=== PATIENT | male | born 1955 | race Caucasian/White ===

== ENCOUNTER 2019-07-05 15:26 | Inpatient (IN) | payer OTHER ==
[~2019-07-05] VITALS: Ht 177.8 cm; Wt 93.7 kg
[2019-07-05] MEDS ORDERED: SODIUM CHLORIDE 0.9% 1,000 ML IV ONE (16:09)
--- NOTE | 2019-07-05 16:10 | NUR ---
BIB EMS FROM HOME FOR SEIZURE TODAY, NO PAST HISTORY. WITNESSED BY , FULL BODY ORIGINALLY A&OX1. IV IN PLACE ON ARRIVAL, 500ML NS GIVEN TEXTILE SCREEN PRINTER. CONNECTED TO ALL MONITORING, HTN AND TACHY. SHOWING AFIB, NO HX OF AFIB. A&OX4 CURRENTLY. PT IS A DAILY DRINKER 5-6 DRINKS/DAY BEER AND VODKA. AT BEDSIDE. CALL MAI LOMBARDO. AWAITING ORDERS AT THIS TIME
[2019-07-05] MEDS ORDERED: LORazepam 2 MG/ML, 1ML ONE (16:18)
[2019-07-05 16:42] LABS: BASOPHILS # (AUTO) 0.04 x10^3/uL (0-0.1); BASOPHILS % (AUTO) 1 % (0-1); EOSINOPHILS % (AUTO) 0 % (1-7); LYMPHOCYTES % (AUTO) 11 % (22-44); MD NO; MEAN CORPUSCULAR HEMOGLOBIN 34.7 pg (27.5-34.5); MEAN CORPUSCULAR HGB CONC 34.2 g/dL (33.2-36.2); MEAN CORPUSCULAR VOLUME 101.4 fL (81-97); MEAN PLATELET VOLUME 7.4 fL (7.4-10.4); MONOCYTES # (AUTO) 0.37 x10^3/uL (0.2-0.8); MONOCYTES % (AUTO) 7 % (2-9); NEUTROPHILS # (AUTO) 4.32 x10^3/uL (1.8-6.8); NEUTROPHILS % (AUTO) 81 % (42-75); PLATELET COUNT 157 x10^3/uL (130-400); RED BLOOD COUNT 4.34 x10^6/uL (4.38-5.82); RED CELL DISTRIBUTION WIDTH 13.4 % (9.4-14.8)
[2019-07-05 16:43] LABS: ALANINE AMINOTRANSFERASE 50 U/L (12-78); ANION GAP 14 mmol/L (5-15); CALCIUM 8.4 mg/dL (8.5-10.1); CHLORIDE 94 mmol/L (98-107); CREATININE 0.85 mg/dL (0.7-1.3); T4 (THYROXINE) 6.6 mcg/dL (4.5-12.1)
[2019-07-05 16:48] LABS: ALKALINE PHOSPHATASE 41 U/L (45-117); BILIRUBIN,TOTAL 0.9 mg/dL (0.2-1.0); TOTAL PROTEIN 7.3 g/dL (6.4-8.2); TROPONIN I 0.049 ng/mL (0.000-0.045)
[2019-07-05] MEDS ORDERED: THIAMINE 100 MG in SODIUM CHLORIDE 0.9% 50 ML IVPB ONE (17:00)
[2019-07-05] MEDS ORDERED: LORazepam 2 MG/ML, 1ML IVPush ONE (17:00)
[2019-07-05] MEDS ORDERED: SODIUM CHLORIDE 0.9% 1,000ML IVBOLUS ONE (17:30)
[2019-07-05] MEDS ORDERED: SODIUM CHLORIDE FLUSH 10ML SYR IVF ONE (17:30)
--- NOTE | 2019-07-05 17:39 | NUR ---
F/U CALL PLACED TO CT IN REGARDS TO DELAY IN TEST, TECH STS PT IS UP NEXT. WILL CONTINUE TO MONITOR
--- NOTE | 2019-07-05 17:47 | NUR ---
BEING TAKEN TO CT NOW
--- NOTE | 2019-07-05 19:03 | NUR ---
RECEIVED REPORT FROM ZEE PRETTY RN TO ASSUME CARE OF PT. AT APROXIMATELY 1850. PT. RESTNG ON [facility] WITH AT FOR SUPPORT. MONITORS IN PLACE. ALL SAFETY MEASURES OBSERVED. ALL RESULTS BACK AND CHART UP FOR RECHECK BY ERP.
--- NOTE | 2019-07-05 19:09 | NUR ---
VS UPDATED. PT. IN A-FIB ON MONITRS RATE 80'S TO LOW 90'S. PT. DENIES ANY PAIN OR DISCOMFORT. DENIES NEEDS AT THIS TIME.
--- NOTE | 2019-07-05 19:26 | NUR ---
DR. PEDRAZA WAS IN TO DISCUSS POC WITH PT. AND AT BS.
[2019-07-05] MEDS ORDERED: SODIUM CHLORIDE FLUSH 10ML SYR IVF PRN (20:00)
--- NOTE | 2019-07-05 20:09 | NUR ---
Pt report from Cassi dominguez. This rn to assume care of pt. No immediate needs from pt. Pt is tele hold. Awaiting hospital bed.
[2019-07-05] MEDS ORDERED: LORazepam 2 MG/ML, 1ML IVPush PRN (20:30)
[2019-07-05] MEDS ORDERED: CHLORDIAZEPOXIDE 25 MG CAPSULE PO PRN (20:30)
--- NOTE | 2019-07-05 21:05 | NUR ---
Pt moved to hospital bed. No immediate needs.
--- NOTE | 2019-07-05 21:08 | NUR ---
ZAYDA RN: DECLINE FOR TRANSFER RECEIVED FROM JOSEPH FROM [facility]
[2019-07-05] MEDS ORDERED: THIAMINE 100MG TABLET ONE (21:42)
[2019-07-05] MEDS: THIAMINE 100MG TABLET PO SCH (21:49)
[2019-07-05] MEDS: SODIUM CHLORIDE 0.9% 1,000 ML IV SCH (22:02)
--- NOTE | 2019-07-05 22:13 | NUR ---
Pt maintenance fluids placed on dial-a-flow d/t lack of pumps on floor. Informed charge of situation.
[2019-07-05 22:33] LABS: TROPONIN I 0.202 ng/mL (0.000-0.045)
--- NOTE | 2019-07-05 22:50 | NUR ---
Increased trop reported to [facility] w/o cp and 5 lead changes. JOSE GUADALUPE states "ok".
--- NOTE | 2019-07-05 23:47 | NUR ---
Pt bedside report to Carole dominguez.
[2019-07-06 05:00] LABS: TROPONIN I 0.168 ng/mL (0.000-0.045)
[2019-07-06] MEDS: SODIUM CHLORIDE 0.9% 1,000 ML IV SCH ×2 (07:00→17:00)
--- NOTE | 2019-07-06 07:24 | NUR ---
Report received from Carole
[2019-07-06] MEDS: FOLIC ACID 1 MG TABLET PO SCH (09:00)
[2019-07-06] MEDS: THIAMINE 100MG TABLET PO SCH ×2 (09:00→20:49)
--- NOTE | 2019-07-06 09:04 | NUR ---
REPORT FROM ZEV PETTY.
--- NOTE | 2019-07-06 09:42 | NUR ---
EEG BEING PERFORMED AT BEDSIDE AT THIS TIME. PT ALSOP REMOVED IV, AWARE OF NEED TO PLACE NEW IV. AWAITING COMPLETION OF CURRENT EXAM
[2019-07-06] MEDS ORDERED: THIAMINE 100MG TABLET ONE (10:05)
--- NOTE | 2019-07-06 10:35 | NUR ---
EEG FINISHING UP AT BEDSIDE AT THIS TIME.
--- NOTE | 2019-07-06 14:53 | NUR ---
PT PROVIDED WITH LUNCH TRAY. DENIES ANY NEEDS OR CONCERNS. CALL LIGHT IN REACH.
--- NOTE | 2019-07-06 15:01 | NUR ---
REPORT RECEIVED FROM [facility]PHIRE BROTHERS.
--- NOTE | 2019-07-06 15:33 | NUR ---
PT RESTING ON [place] WATCHING TV. DIET TRAY REMOVED FROM ROOM. DENIES FURTHER NEEDS AT THIS TIME.
--- NOTE | 2019-07-06 16:00 | NUR ---
REPORT GIVEN TO WALLY BROTHERS. PT IS READY FOR TRANSPORT AT THIS TIME.
[2019-07-06 19:52] VITALS: BP 157/78
[2019-07-07] VITALS (8 sets, daily range): BP systolic 147–182; BP diastolic 66–93
[2019-07-07] MEDS: SODIUM CHLORIDE 0.9% 1,000 ML IV SCH ×2 (03:01→06:08)
[2019-07-07 06:05] LABS: ANION GAP 7 mmol/L (5-15); C-REACTIVE PROTEIN, QUANT 0.28 mg/dL (0.02-0.49); CALCIUM 8.3 mg/dL (8.5-10.1); CHLORIDE 103 mmol/L (98-107); CREATININE 0.66 mg/dL (0.7-1.3)
[2019-07-07 06:17] LABS: BASOPHILS # (AUTO) 0.04 x10^3/uL (0-0.1); BASOPHILS % (AUTO) 1 % (0-1); EOSINOPHILS # (AUTO) 0.06 x10^3/uL (0-0.4); EOSINOPHILS % (AUTO) 2 % (1-7); LYMPHOCYTES # (AUTO) 1.25 x10^3/uL (1-3.4); LYMPHOCYTES % (AUTO) 34 % (22-44); MD NO; MEAN CORPUSCULAR HEMOGLOBIN 34.5 pg (27.5-34.5); MEAN CORPUSCULAR HGB CONC 33.5 g/dL (33.2-36.2); MEAN PLATELET VOLUME 7.9 fL (7.4-10.4); MONOCYTES # (AUTO) 0.58 x10^3/uL (0.2-0.8); MONOCYTES % (AUTO) 16 % (2-9); NEUTROPHILS # (AUTO) 1.76 x10^3/uL (1.8-6.8); NEUTROPHILS % (AUTO) 48 % (42-75); PLATELET COUNT 109 x10^3/uL (130-400); RED CELL DISTRIBUTION WIDTH 13.1 % (9.4-14.8)
[2019-07-07] MEDS: THIAMINE 100MG TABLET PO SCH ×2 (09:39→20:08)
[2019-07-07] MEDS: FOLIC ACID 1 MG TABLET PO SCH (09:39)
[2019-07-07] MEDS: ENOXAPARIN 40 MG/0.4 ML SQ SCH (15:26)
[2019-07-07] MEDS ORDERED: hydrALAzine 20 MG/ML, 1ML IV ONE (21:00)
[2019-07-08 00:55] VITALS: BP 153/62
[2019-07-08 06:15] LABS: ANION GAP 9 mmol/L (5-15); CALCIUM 9.2 mg/dL (8.5-10.1); CHLORIDE 101 mmol/L (98-107); CREATININE 0.66 mg/dL (0.7-1.3)
[2019-07-08 06:17] LABS: BASOPHILS # (AUTO) 0.02 x10^3/uL (0-0.1); BASOPHILS % (AUTO) 0 % (0-1); EOSINOPHILS # (AUTO) 0.05 x10^3/uL (0-0.4); EOSINOPHILS % (AUTO) 1 % (1-7); LYMPHOCYTES # (AUTO) 1.41 x10^3/uL (1-3.4); LYMPHOCYTES % (AUTO) 27 % (22-44); MD NO; MEAN CORPUSCULAR HEMOGLOBIN 34.6 pg (27.5-34.5); MEAN CORPUSCULAR HGB CONC 34.2 g/dL (33.2-36.2); MEAN CORPUSCULAR VOLUME 101.2 fL (81-97); MEAN PLATELET VOLUME 8.2 fL (7.4-10.4); MONOCYTES # (AUTO) 0.86 x10^3/uL (0.2-0.8); MONOCYTES % (AUTO) 16 % (2-9); NEUTROPHILS # (AUTO) 2.94 x10^3/uL (1.8-6.8); NEUTROPHILS % (AUTO) 56 % (42-75); PLATELET COUNT 130 x10^3/uL (130-400); RED BLOOD COUNT 4.65 x10^6/uL (4.38-5.82); RED CELL DISTRIBUTION WIDTH 13.4 % (9.4-14.8)
[2019-07-08 06:56] VITALS: BP 176/79
[2019-07-08 07:59] VITALS: BP 149/77
[2019-07-08] MEDS: THIAMINE 100MG TABLET PO SCH (08:05)
[2019-07-08] MEDS: FOLIC ACID 1 MG TABLET PO SCH (08:05)
[2019-07-08] MEDS ORDERED: REGADENOSON 0.4 MG/5 ML SYRINGE ONE (08:28)
[2019-07-08 13:32] VITALS: BP 158/69
[2019-07-08] MEDS: ENOXAPARIN 40 MG/0.4 ML SQ SCH (14:28)
[2019-07-08] MEDS ORDERED: THIA100T67 PO (17:59)
[2019-07-08] MEDS ORDERED: FOLI-17 PO (17:59)
[2019-07-08] MEDS ORDERED: CARV3.1212 PO (18:14)
[2019-07-08] MEDS ORDERED: ASPI81TA45 PO (18:14)
[2019-07-08] MEDS ORDERED: LISI5TAB7 PO (18:14)
[2019-07-08] MEDS ORDERED: ATOR20TA37 PO (18:14)
== END 2019-07-08 18:15 | disposition home or self-care (01) | DRG 101 ==
LOC: ED 20:11 → EDIP 20:12 → 4EST 07-06 16:40 → 4WST 07-07 17:53
PROVIDERS: ADMIT Hospitalist; ATTEND Hospitalist
DX: G40.89 Other seizures (principal); F10.20 Alcohol dependence, uncomplicated; Z83.3 Family history of diabetes mellitus; Z72.0 Tobacco use; I48.91 Unspecified atrial fibrillation; I10 Essential (primary) hypertension; Y90.9 Presence of alcohol in blood, level not specified
CPT/HCPCS: 36415; 70450; 71045; 78452; 80048; 80053; 80307; 82607; 83605; 83735; 83880; 84436; 84443; 84484; 85025; 86140; 93005; 93017; 93306; 95819; 99285; G0378; J2785; J3411; A9502; J0360; J2060; J7030